=== PATIENT | male | born 1940 | race Caucasian/White ===

== ENCOUNTER 2016-10-12 21:02 | Inpatient (IN) | payer MEDICARE ==
[~2016-10-12] VITALS: Ht 170.2 cm; Wt 72.2 kg
[2016-10-12 22:25] VITALS: BP 124/69; PULSE 67; RESP 16; O2SAT 95
--- NOTE | 2016-10-12 22:25 | NUR ---
NEW ADMIT Pt arrived via air transport @2224. Pt A&Ox3, able to BECERRA and make needs known. Pt independent with transfer to bed. Pt c/o abdominal pain 02/07, requested Diladid once gave orders. Pt arrived [facility] with a 20 gauge to the left AC, all belongings other than glasses are with his , who will be here in the morning. Pt states that he wears a CPAP at night and that his will bring it tomorrow. Pt put on continuous pulse oximeter due to Hx of NATI. Pt vitals stable. All admission questions asked by Kimberly Samano RN. Pt resting in room 2030, resting in bed with call light in reach.
[2016-10-12] MEDS ORDERED: ALPR0.25 PO (23:07)
[2016-10-12] MEDS ORDERED: Alum-Mag Hydrox-Simeth 30 mL Suspension PO PRN (23:45)
[2016-10-12] MEDS ORDERED: Polyethylene Glycol (PEG) 17 Gm Powder PO PRN (23:45)
[2016-10-12] MEDS ORDERED: Ondansetron 2 mg/mL 2 mL Inj IVPUSH PRN (23:45)
[2016-10-13] VITALS (11 sets, daily range): BP systolic 106–135; BP diastolic 60–69; PULSE 59–70; RESP 12–16; O2SAT 92–97
[2016-10-13] MEDS: 0.9% Sodium Chloride 1,000 ML IV SCH ×6 (00:07→23:43)
[2016-10-13] MEDS: HYDROmorphone 0.5 mg/0.5 mL iSecure Syringe IVPUSH PRN ×3 (00:08→08:34)
[2016-10-13] MEDS: Heparin 5,000 Unit/mL Inj SUBQ SCH ×3 (00:22→18:41)
--- NOTE | 2016-10-13 01:44 | PCM.HPMED ---
Subjective Date of Service Oct 12, 2016 Primary Provider: Admitting Physician: Patrick Roger MD Primary Care Physician: Virginie Buchanan MD Attending Physician: Patrick Roger MD Chief Complaint: abd pain History of Present Illness: 76 yo M with h/o GERD who presents as airlift transfer from [facility] for acute cholecystitis with pancreatitis secondary to common bile duct stone obstruction. Patient reports that he has been having some dull achy epigastric pain since the new year, but this pain resolved with just taking Tums. It wasn' t until earlier today that his pain worsened and did not resolved with Tums. He reports he has been at home all day and his pain became increasingly worse until he rated it as 10/10. He reports this pain does radiate to his back and he had some moderate nausea but no vomiting or diarrhea. He denies any fevers or rashes but reports feeling chills. Denies any sick contacts, recent travels, or other constitutional symptoms. He reports a history of acid reflux symptoms, but has never had pain this severe. At [facility], his workup was pertinent for: CBC - WBC - 14.6, HGB 16.1, Hct- 45.9, MCV 85.8, Plts 224, Neutrophils 85.6% CMP- Na-141, K- 3.6, Cl-97, Bun - 14, Cr 0.9, Glucose 116, Ionized Ca - 1.28, Alb- 4.5, Tbili- 2.0, AlkPhos-58, ALT-30, AST-45, Lipase- [id number] UA - only positive for trace blood, 1+ ketones, CT Abd/Pelvis w/ Contrast revealed - 2 tandem distal CBD stones each measuring 4mm, resulting in CBD dilation, cystic duct dilation, distended GB with pericholecystic fluid and peripancreatic inflammation and fluid primarily around head of pancreas. No necrosis or pseudocyst noted. There were also non- obstructing gallstones present and b/l fat containing inguinal hernias. He did receive Dilaudid for pain control and IV Zosyn at 6 hour. He was then transferred to [facility] for further treatment. At present, he only complains of 5/10 epigastric pain without nausea. Review of Systems: 12 Point ROS negative except as stated in HPI Allergies Coded Allergies: Dbcubum-Sdc-Axq Reductase Inhibitor (Verified Allergy, Intermediate, Extrapyramidal Symptoms, 10/12/16) weakness Sulfa (Sulfonamide Antibiotics) (Verified Allergy, Intermediate, Hives, 09/16) niacin (Verified Allergy, Intermediate, Hives, 10/12/16) Uncoded Allergies: bee stings (Allergy, Intermediate, Rash, 10/12/16) Home Medications Multivitamins daily Tums prn Xanax prn insomnia PMH Right Labyrinthitis with hearing loss GERD H/o Prostatitis H/o "1 kidney spills sugar" H/o Hemorrhoids Reports NATI on CPAP Surgical History Tonsillectomy Family History Noncontributory Social History Hx Alcohol Use: Yes (2 glasses of wine with dinner) Hx Substance Use: Yes (remote past) Hx Tobacco Use: Yes Smoking Status: Former Smoker (Remote history of smoking) Living Arrangement: with Family Exam Vital Signs Vital Sign - Last Date Time Temp Pulse Resp B/P Pulse Ox O2 Delivery O2 Flow Rate FiO2 10/12/16 22:25 36.7 67 16 124/69 95 Room Air Exam Gen: Well developed male in NAD HEENT: PERRLA, Sclera Anicteric, Oropharynx non-erythematous, mucosa moist and pink Neck: Soft, nontender CV: RRR with no m/r/c noted Resp: CTAB, no w/r/c, normal effort Abd: Moderately tender to palpation of epigastric region, Neg Adams's sign, Normoactive BS, Non-distended, Soft MSK: MS grossly intact and equal Neuro: Alert and Oriented x3, No focal neuro deficits Skin; Warm, dry, intact, no rashes noted Psych: Appropriate mood and affect Assessment & Plan 76 yo M with h/o GERD who presents as airlift transfer from [facility] for evaluation of acute cholecystitis with pancreatitis secondary to common bile duct stone obstruction. Patient is currently clinically stable and pain is well managed with IV Dilaudid. All labs and imaging is currently in patient's chart. #Acute Cholecystitis and Pancreatitis secondary to CBD stone obstruction -As demonstrated on CT imaging from [facility]. -GI, Dr. Hrat, is aware and will evaluate patient in AM. -Will place patient on NPO status and aggressively hydrate with IV NS 250mls/hr -Continue IV Zosyn for cholecystitis and elevated WBC. -IV Dilaudid prn pain, Anti-emetics and Anti-nausea as needed. H/o NATI on CPAP, POA -Patient reports that his will bring in their CPAP machine. H/O GERD -IV Pantoprazole BID Restoril prn insomnia Ativan prn anxiety Pain Evaluation: Adequate Pain Control VTE Prophylaxis: Sub-Q Heparin (Unfractionated) Resuscitation Status: CPR: Attempt Resuscitation Attending Statement The patient was seen on 10/12/2016 and I agree with the history, exam and plan as outlined in the note above. Rocael Martin DO Oct 12, 2016 23:13 Patrick Roger MD Oct 13, 2016 06:20
--- NOTE | 2016-10-13 01:58 | NUR ---
IV FLUIDS/PAIN MEDS Pt received 1 mg diladid for 6/10 abdominal pain with good results. Pt was started on IV fluids. IV patent and NS running @ 250ml/hr. Pt resting comfortably with ear plugs in. Pt is NPO, but does have ice chips at the bedside, which was approved by . No other issues noted at this time. Addendum: 10/13/16 at 0505 by EMILY JOLLY RN IV FLUIDS/PAIN MEDS/ Pt still has 250ml/hr NS running, wants to load pt up with fluids and has a GI consult scheduled in the AM. Pt received another 1mg IV Diladid for 7/10 abdominal pain. Patient resting comfortably after reassessment, no other issues at this time. Pt able to use urinal at bedside, 200cc voided, UA sent to lab.
[2016-10-13 04:05] LABS: APPEARANCE,URINE CLEAR (CLEAR,HAZY); COLOR,URINE YELLOW (YELLOW); OCCULT BLOOD,URINE NEGATIVE (NEGATIVE); PH,URINE 5.5 (5.0-8.0); UROBILINOGEN,URINE NORMAL (NORMAL)
[2016-10-13 05:56] LABS: BASOPHILS % (AUTO) 0.1 % (0-3); EOSINOPHILS % (AUTO) 0.4 % (0-5); MONOCYTES % (AUTO) 5.4 % (4-12); Mean Corpuscular Hemoglobin 29.4 pg (27.0-35.0); Mean Corpuscular Volume 85.1 fL (81-100); NEUTROPHILS % (AUTO) 85.6 % (40-74); Platelet Count 189 bil/L (150-400)
[2016-10-13 06:38] LABS: INR 1.05 ratio
[2016-10-13] MEDS: Pantoprazole 4 mg/mL 10 mL Inj IVPUSH SCH ×2 (08:29→18:41)
[2016-10-13] MEDS: Piperacillin-Tazo 3.375 Gm Inj 3.375 GM in Dextrose 5% Minibag Plus 50 ML IV SCH ×2 (08:41→21:02)
[2016-10-13] MEDS ORDERED: fentaNYL-PF 50 mCg/mL 2 mL Inj ONE (10:28)
--- NOTE | 2016-10-13 10:38 | NUR ---
ERC Biliary Duct Alert and oriented X3. able to make needs known. stable vital signs. Abdominal pain 5/10 reported by patient with effective results 2/10. per patient mild nausea with PRN pain medication but tolerable. patient has been NPO after mid night. Received all scheduled IV medications as ordered. independent with transfers with assistance. doctors orders to remove telemetry. Endoscopy called for procedure at 1500 XR ERC Biliary duct. patient aware. continue to monitor for pain. NS running at 250 mls/hour as ordered.
--- NOTE | 2016-10-13 11:27 | PCM.CHPMED ---
Subjective Date of Service: Oct 13, 2016 Provider requesting consult: Rocael Martin DO Primary Physician: Admitting Physician: Patrick Roger MD Primary Care Physician: Virginie Buchanan MD Attending Physician: Patrick Roger MD Chief Complaint: Chief Complaint: Abdominal pain History of Present Illness: Patient is a 76 yo M with history of GERD who presents with dull achy epigastric pain,and nausea. He reports he has had this pain since the new year, but it initially resolved with just taking Tums. It wasn't until the day of admission that his pain worsened. He reports he has been at work when his pain became increasingly worse until he rated it as 10/10. His pain radiated to his back and he had some moderate nausea but no vomiting or diarrhea. He denies any fevers or rashes but reports feeling chills. He reports a history of acid reflux symptoms, but has never had pain this severe. This morning, however, he states his abdominal pain is much improved on Dilaudid, and reports only minor pain at this time with mild nausea. He has no other complaints at this time. At [facility], he was noted to have WBC 14.6, T bili 2, alk phos 59, ALT 30, AST 45, and lipase [id number]. CT abdomen/pelvis with contrast showed 2 tandem distal CBD stones each measuring 4mm, resulting in CBD dilation, cystic duct dilation, distended GB with pericholecystic fluid and peripancreatic inflammation and fluid primarily around head of pancreas. No necrosis or pseudocyst noted. There were also non-obstructing gallstones present and b/l fat containing inguinal hernias. He was admitted as an airlift transfer from [facility] for acute cholecystitis with pancreatitis secondary to common bile duct stone obstruction. His last colonoscopy was 1 year ago, showing 1 colon polyp. He is due for a follow up 5 years following. He has no family history of colon cancer, Crohn's, UC, or Celiac disease. He denies alcohol abuse or NSAID use. Review of Systems: Comprehensive review of systems conducted and was negative except for the pertinent positives listed above. PMH Past Medical History Right Labyrinthitis with hearing loss GERD H/o Prostatitis H/o "1 kidney spills sugar" H/o Hemorrhoids Reports NATI on CPAP Surgical History Tonsillectomy Allergies: Coded Allergies: Eavbwhm-Icd-Nvm Reductase Inhibitor (Verified Allergy, Intermediate, Extrapyramidal Symptoms, 10/12/16) weakness Sulfa (Sulfonamide Antibiotics) (Verified Allergy, Intermediate, Hives, 09/16) niacin (Verified Allergy, Intermediate, Hives, 10/12/16) Uncoded Allergies: bee stings (Allergy, Intermediate, Rash, 10/12/16) Family History Family History Noncontributory Social History Hx Alcohol Use: Yes (2 glasses of wine with dinner)Hx Substance Use: Yes ( remote past)Hx Tobacco Use: Yes Smoking Status: Former Smoker (Remote history of smoking) Living Arrangement: with Family Exam Vital Signs Vital Sign - Last Date Time Temp Pulse Resp B/P Pulse Ox O2 Delivery O2 Flow Rate FiO2 10/13/16 08:00 70 10/13/16 07:53 36.6 14 110/69 95 Room Air Intake and Output 10/12/16 10/12/16 10/13/16 Cumulative From/Thru 15:00 23:00 07:00 10/12/16 22:25 - 10/13/16 06:05 Intake Total 0 ml 0 ml Output Total 200 ml 200 ml Balance -200 ml -200 ml Intake Oral 0 ml 0 ml Output Urine Total 200 ml 200 ml # Voids 1 1 Additional Information: General: Alert, Oriented X3, Cooperative, No Acute Distress Head: Normocephalic, atraumatic. External ears normal. Eyes: PERRLA, EOMI. Anicteric sclerae. Mouth: Mouth Normal, Mucous Membranes Moist/[place] Neck: Neck supple with full range of motion. Chest & Lungs: Clear to auscultation bilaterally with no crackles, wheezes, or rhonchi. Cardiovascular: Regular Rate/Rhythm, Normal S1, Normal S2, No Murmurs/Rubs/ Gallops Abdomen: Mild epigastric tenderness. Minimal RUQ tenderness, negative Adams sign, Non-distended, No masses, Normoactive bowel tones, Soft Musculoskeletal: Normal Range of Motion Extremities: No cyanosis/clubbing/edema bilaterally Neurological: Grossly Neurologically Intact, Normal Speech Lab and Diagnostics Result Diagram: 10/13/1640 10/13/16 0540 Assessment & Plan Assessment Patient 76 yo M with h/o GERD who presents as airlift transfer from [facility] for evaluation of acute cholecystitis with pancreatitis secondary to common bile duct stone obstruction. Patient is currently clinically stable and pain is well managed with IV Dilaudid. Pancreatitis secondary to CBD stone obstruction - CT abdomen/pelvis with contrast showed 2 tandem distal CBD stones each measuring 4mm, resulting in CBD dilation, cystic duct dilation, distended GB with pericholecystic fluid and peripancreatic inflammation and fluid primarily around head of pancreas. Pt reporting abdominal pain well-controlled with Dilaudid. Lipase now 3116, down from >10k. - NPO - NS 250mls/hr - Dilaudid IV prn pain - Zofran 4-7 mg IV q4h PRN - Will proceed with ERCP Acute Cholecystitis - Secondary to cholelithiasis and choledocholithiasis. CT abd/pelvis showed distended GB with pericholecystic fluid indicative of cholecystitis. - Recommend Surgery consult History of GERD - IV Pantoprazole 40 mg BID Problems: Pain Evaluation: Adequate Pain Control VTE Prophylaxis: Sub-Q Heparin (Unfractionated) Resuscitation Status: CPR: Attempt Resuscitation Attending Statement Pt seen and examined with resident physician I agree with H and P and plan as outlined above. Plan for ERCP Javy Mitchell Oct 13, 2016 11:27 Kian Webb MD Oct 13, 2016 23:32
[2016-10-13] MEDS ORDERED: Rocuronium 10 mg/mL 5 mL Inj ONE (12:19)
[2016-10-13] MEDS ORDERED: Propofol 10,000 mCg/mL 20 mL Inj ONE (12:19)
[2016-10-13] MEDS ORDERED: Succinylcholine Chloride 20 mg/mL 5 mL Inj ONE (12:19)
[2016-10-13] MEDS ORDERED: Ondansetron 2 mg/mL 2 mL Inj ONE (12:19)
[2016-10-13] MEDS ORDERED: Lactated Ringer's 1,000 ML IV ONE (13:45)
--- NOTE | 2016-10-13 14:06 | NUR ---
To Endo lab Patient is off to Endo lab for XR ERC biliary duct procedure.
--- NOTE | 2016-10-13 14:07 | NUR ---
patient has been NPO. Addendum: 10/13/16 at 1408 by SUPRIYA AMIN RN Amended: Links added.
--- NOTE | 2016-10-13 14:57 | NUR ---
Social Work: Initial Assessment Attempt Data & Assessment: Stereo Plotter Operator attempted to meet with the patient and complete Initial Assessment, but was notified by patient's nurse that the patient was at the Endo lab completing a ERC. SW will attempt to complete assessment tomorrow. SW will continue to follow. Plan: SW will attempt to complete initial assessment tomorrow.
[2016-10-13] MEDS ORDERED: MetoCLOpramide 5 mg/mL 2 mL Inj IVPUSH PRN (15:05)
[2016-10-13] MEDS ORDERED: Dexamethasone 4 mg/mL Inj IVPUSH PRN (15:05)
[2016-10-13] MEDS ORDERED: Lactated Ringer's 1,000 ML IV SCH (15:05)
[2016-10-13] MEDS ORDERED: HYDROmorphone 1 mg/mL Inj IVPUSH PRN (15:05)
[2016-10-13] MEDS ORDERED: Lactated Ringer's 500 ML IV PRN (15:05)
[2016-10-13] MEDS ORDERED: Ondansetron 2 mg/mL 2 mL Inj IVPUSH PRN (15:05)
[2016-10-13] MEDS ORDERED: EPHEDrine Sulfate 50 mg/mL Inj IVPUSH PRN (15:05)
[2016-10-13] MEDS ORDERED: Phenylephrine 10,000 mCg/mL Inj IVPUSH PRN (15:05)
[2016-10-13] MEDS ORDERED: fentaNYL-PF 50 mCg/mL 2 mL Inj IVPUSH PRN (15:05)
--- NOTE | 2016-10-13 15:05 | PCM.HPANE ---
Patient Data Surgeon Admitting Provider:Patrick Roger MD Attending Provider:Patrick Roger MD Primary Care Physician:Virginie Buchanan MD Other Provider: Reason for Visit Cholecystitis With Pancreatitis Ht/WT & BMI Height (Feet): 5 Height (Inches): 7.00 Weight (Kilograms): 65.300 Body Mass Index 22.60 Allergies Coded Allergies: Rkkoiuq-Qnn-Apx Reductase Inhibitor (Verified Allergy, Intermediate, Extrapyramidal Symptoms, 10/12/16) weakness Sulfa (Sulfonamide Antibiotics) (Verified Allergy, Intermediate, Hives, 09/16) niacin (Verified Allergy, Intermediate, Hives, 10/12/16) Uncoded Allergies: bee stings (Allergy, Intermediate, Rash, 10/12/16) Past Anesthesia History Anesthesia History: Denies:: Anesthesia Reactions Diabetes History Hx Diabetes?: No (kidney spills sugar) MRSA MRSA: No Medications Reported Medications Alprazolam (Xanax)0.25 Mg Tablet PO PRN PRN For Anxiety Ref 0 10/12/16 History History of ENT Problems?: Yes HEENT History: Denies:: Cataracts Dysphagia Glaucoma Sinus Problem Other HEENT Pertinent History: dry R eye Hx of Heart Problems?: No Hx of Respiratory Problem?: Yes Respiratory History: Denies:: Asthma COPD Chest Surgery Dyspnea Emphysema Hemoptysis Pneumonia Tuberculosis Other Resp Pertinent History: sleep apnea Hx Neurologic Problems?: Yes Neurological History: Positive for:: Dizziness (labrynthitis) Denies:: Alzheimer's Disease CVA Dementia Headaches Parkinson's Disease Seizures Hx of GI Problems?: Yes Gastrointestinal History: Positive for:: Gastroesphageal Reflux Heartburn Rectal Bleeding (with hemorrhoid) Denies:: Diverticulitis Gastrointestinal Bleeding Hepatitis Hiatal Hernia Hx of Problems?: Yes Genitourinary History: Denies:: HX of Hemodialysis Kidney Stones Urinary Tract Infection HX of Peritoneal Dialysis: No Other Pertinent History: one kidny spills sugar hx. of prostate infections Hx Musculoskeletal Problems?: Yes Musculoskeletal History: Positive for:: Back Injury (back pain) Denies:: Joint Replacement Musculoskeletal Trauma Hx of Psycho/Social Problems?: No Hx Surgeries?: Yes (tonsils as a child) Hx Any Other Health Problems?: Yes Other History: Positive for:: Hospitalization (remote) Denies:: Cancer Thyroid Disease History Blood Transfusions: Positive for:: Accept Blood Products? Denies:: Blood Transfusions Hx Diabetes: No (kidney spills sugar) Hx Alcohol Use: Yes (2 glasses of wine with dinner)Hx Substance Use: Yes ( remote past) Smoking Status: Former Smoker (Remote history of smoking) Have You Smoked inLast 12 mo: No Stop/Bang Treated for Sleep Apnea?: Yes Do You Have a CPAP Machine?: Yes S-Snoring: Do You Snore Loudly: Yes Risk Assessment Category Category 1A: Patient has history of documented sleep apnea, and HAS NOT received any narcotic, sedative or anesthesia administration during this stay. Category 1B: Patient has history of documented sleep apnea, and HAS received any narcotic , sedative or anesthesia administration during this stay Category 2: Patient has SUSPECTED Obstructive Sleep Apnea, and HAS received any narcotic , sedative or anesthesia administration during this stay. Category 3: Patient has SUSPECTED Obstructive Sleep Apnea and HAS NOT received narcotic, sedative or anesthesia administration during this stay. Category 4: Outpatient in Procedural Areas with known sleep apnea or who screen positive for High Risk via the STOP/BANG questionnaire. Exam Exam Vital Signs Vital Signs Date Time Temp Pulse Resp B/P Pulse Ox O2 Delivery O2 Flow Rate FiO2 10/13/16 08:00 70 10/13/16 07:53 36.6 68 14 110/69 95 Room Air General Appearance: Alert, Oriented X3, Cooperative, No Acute Distress HEENT/AIRWAY: MP 3, Mouth Opening (small) Lungs: Clear to Auscultation Heart: Exam Unremarkable Meds/Labs/Diagnostics Admission Meds Current Medications Heparin Sodium (Porcine) 5000 unit 5,000 unit Q8 SUBQ Last administered on 10/13 08:42; Start 10/13/16 at 00:30 Sodium Chloride (Normal Saline) 1,000 ml @ 250 mls/hr Q4H IV Last administered on 10/13/16 11:24; Start 10/12/16 at 23:43 Pantoprazole 40 mg 40 mg BIDAC IVPUSH Last administered on 10/13/16 08:29; Start 10/13/16 at 07:30 Piperacillin Sod/ Tazobactam Sod/ Dextrose/Water (Zosyn 3.375 Gm Inj/D5W Minibag Plus) 50 ml @ 12.5 mls/hr Q12 IV Last administered on 1/13/17at 08:41 ; Start 10/13/16 at 08:30 Labs Test 10/13/16 03:20 10/13/16 05:40 Urine Color Yellow (YELLOW) Urine Appearance Clear (CLEAR,HAZY) Urine pH 5.5 (5.0-8.0) Urine Specific [place] 1.015 (1.003-1.035) Urine Protein Negativemg/dL (NEG,TRACE) Urine Glucose (UA) Negativemg/dL (NEGATIVE) Urine Ketones 15mg/dL (NEGATIVE) Urine Occult Blood Negative (NEGATIVE) Urine Nitrite Negative (NEGATIVE) Urine Bilirubin Negative (NEGATIVE) Urine Urobilinogen Normalmg/dL (NORMAL) Urine Leukocyte Esterase Negative (NEGATIVE) Urine RBC 0-2/hpf (0-2) Urine WBC 0-5/hpf (0-5) Urine Epithelial Cells Occasional/hpf (NONE-MOD) Urine Crystals None seen (NONE SEEN) Urine Bacteria None/hpf (NONE-FEW) Urine Hyaline Casts None/lpf (NONE) Urine Granular Casts None seen (NONE SEEN) Urine Waxy Casts None seen (NONE SEEN) Urine Red Blood Cell Casts None seen (NONE SEEN) Urine White Blood Cell Casts None seen (NONE SEEN) Urine Mucus None seen (None Seen) Urine Trichomonas None seen (NONE SEEN) Urine Yeast None (NONE SEEN) Urine Culture Reflexed Not indicated White Blood Count 9.0th/mm3 (3.8-10.1) Red Blood Count 4.70mil/mm3 (4.40-5.80) Hemoglobin 13.8g/dL (13.8-17.2) Hematocrit 40.0% (41.0-50.0) Mean Corpuscular Volume 85.1fL (81-100) Mean Corpuscular Hemoglobin 29.4pg (27.0-35.0) Mean Corpuscular Hemoglobin Concent 34.5% (32.0-37.0) Red Cell Distribution Width 13.2% (12.3-15.4) Platelet Count 189bil/L (150-400) Neutrophils (%) (Auto) 85.6% (40-74) Lymphocytes (%) (Auto) 8.4% (14-46) Monocytes (%) (Auto) 5.4% (4-12) Eosinophils (%) (Auto) 0.4% (0-5) Basophils (%) (Auto) 0.1% (0-3) Prothrombin Time 11.2sec (8.1-12.5) Prothromb Time International Ratio 1.05ratio Sodium Level 140mEq/L (134-144) Potassium Level 4.1mEq/L (3.5-5.2) Chloride Level 103mEq/L (97-108) Carbon Dioxide Level 26mmol/L (18-29) Blood Urea Nitrogen 13mg/dL (8-27) Creatinine 0.76mg/dL (0.76-1.27) Estimat Glomerular Filtration Rate 106mL/min (>59) Glucose Level 135mg/dL (60-99) Calcium Level 8.3mg/dL (8.5-10.1) Total Bilirubin 1.5mg/dL (0.0-1.2) Aspartate Amino Transf (AST/SGOT) 23U/L (0-50) Alanine Aminotransferase (ALT/SGPT) 20U/L (0-44) Alkaline Phosphatase 49U/L (25-160) Total Protein 5.6g/dL (6.4-8.4) Albumin 3.4g/dL (3.4-5.0) Amylase Level 2386U/L (28-100) Lipase 3116U/L (13-60) Plan Impression Patient chart reviewed, patient interviewed and anesthestic plan with risks, benefits, and alternatives discussed, and informed consent obtained. ASA Physical Status: ASA2 Mod Systemic Disease Anesthetic Plan: GA Bene/Risks/Altern/Consents: Yes HP Complete Prior to Induction: Yes Luis Wyatt MD Oct 13, 2016 13:21
--- NOTE | 2016-10-13 17:45 | PCM.PNMED ---
Subjective Date of Service Oct 13, 2016 Subjective Patient is a 76 yo M with medical history of GERD. Admitted for treatment of acute cholecystitis with pancreatitis secondary to common bile duct stone obstruction. Hospital Day 1 Today Patient stated that he was experiencing mild abdominal distension and pain in abdomen with radiation to back, but has vastly improved since admission and well controlled with pain medication. Patient stated that he has nausea associated with pain medication. He stated he has not had a bowel movement since admission. Patient denies vomiting, bruising of abdomen, fever, chills, loss of bowel or bladder control. ROS negative except as mentioned above. Exam Vital Signs Vital Sign - Last Date Time Temp Pulse Resp B/P Pulse Ox O2 Delivery O2 Flow Rate FiO2 10/13/16 05:06 68 10/13/16 04:25 36.7 16 106/61 92 Room Air Intake and Output 10/12/16 10/12/16 10/13/16 Cumulative From/Thru 15:00 23:00 07:00 10/12/16 22:25 - 10/13/16 06:05 Intake Total 0 ml 0 ml Output Total 200 ml 200 ml Balance -200 ml -200 ml Intake Oral 0 ml 0 ml Output Urine Total 200 ml 200 ml # Voids 1 1 Exam General: Alert, Oriented X3, Cooperative, No Acute Distress Head: Normocephalic, atraumatic. External ears normal. Eyes: PERRLA, EOMI. Anicteric sclerae. Mouth: Mouth Normal, Mucous Membranes Moist/[place] Neck: Neck supple with full range of motion. Chest & Lungs: Clear to auscultation bilaterally with no crackles, wheezes, or rhonchi. Cardiovascular: Regular Rate/Rhythm, Normal S1, Normal S2, No Murmurs/Rubs/ Gallops Abdomen: Mildly tender RUQ and Epigastric area, distended, No masses, Normoactive bowel tones, Negative hodges turners sign, Negative Enrique's sign Musculoskeletal: Normal Range of Motion Extremities: No cyanosis/clubbing/edema bilaterally, no tenderness to palpation of calves b/l Neurological: Grossly Neurologically Intact, , Normal Speech, Strength Normal 4 /4 ext, Normal Gait, Sensation Intact, Cerebellar Function nl Finger-Nose, Lab and Diagnostics Copied from H&P "At [facility], his workup was pertinent for: CBC - WBC - 14.6, HGB 16.1, Hct- 45.9, MCV 85.8, Plts 224, Neutrophils 85.6% CMP- Na-141, K- 3.6, Cl-97, Bun - 14, Cr 0.9, Glucose 116, Ionized Ca - 1.28, Alb- 4.5, Tbili- 2.0, AlkPhos-58, ALT-30, AST-45, Lipase- 25050 UA - only positive for trace blood, 1+ ketones," Laboratory Tests Test 10/13/16 03:20 10/13/16 05:40 Urine Color Yellow (YELLOW) Urine Appearance Clear (CLEAR,HAZY) Urine pH 5.5 (5.0-8.0) Urine Specific [place] 1.015 (1.003-1.035) Urine Protein Negativemg/dL (NEG,TRACE) Urine Glucose (UA) Negativemg/dL (NEGATIVE) Urine Ketones 15mg/dL (NEGATIVE) Urine Occult Blood Negative (NEGATIVE) Urine Nitrite Negative (NEGATIVE) Urine Bilirubin Negative (NEGATIVE) Urine Urobilinogen Normalmg/dL (NORMAL) Urine Leukocyte Esterase Negative (NEGATIVE) Urine RBC 0-2/hpf (0-2) Urine WBC 0-5/hpf (0-5) Urine Epithelial Cells Occasional/hpf (NONE-MOD) Urine Crystals None seen (NONE SEEN) Urine Bacteria None/hpf (NONE-FEW) Urine Hyaline Casts None/lpf (NONE) Urine Granular Casts None seen (NONE SEEN) Urine Waxy Casts None seen (NONE SEEN) Urine Red Blood Cell Casts None seen (NONE SEEN) Urine White Blood Cell Casts None seen (NONE SEEN) Urine Mucus None seen (None Seen) Urine Trichomonas None seen (NONE SEEN) Urine Yeast None (NONE SEEN) Urine Culture Reflexed Not indicated White Blood Count 9.0th/mm3 (3.8-10.1) Red Blood Count 4.70mil/mm3 (4.40-5.80) Hemoglobin 13.8g/dL (13.8-17.2) Hematocrit 40.0% (41.0-50.0) Mean Corpuscular Volume 85.1fL (81-100) Mean Corpuscular Hemoglobin 29.4pg (27.0-35.0) Mean Corpuscular Hemoglobin Concent 34.5% (32.0-37.0) Red Cell Distribution Width 13.2% (12.3-15.4) Platelet Count 189bil/L (150-400) Neutrophils (%) (Auto) 85.6% (40-74) Lymphocytes (%) (Auto) 8.4% (14-46) Monocytes (%) (Auto) 5.4% (4-12) Eosinophils (%) (Auto) 0.4% (0-5) Basophils (%) (Auto) 0.1% (0-3) Prothrombin Time 11.2sec (8.1-12.5) Prothromb Time International Ratio 1.05ratio Sodium Level 140mEq/L (134-144) Potassium Level 4.1mEq/L (3.5-5.2) Chloride Level 103mEq/L (97-108) Carbon Dioxide Level 26mmol/L (18-29) Blood Urea Nitrogen 13mg/dL (8-27) Creatinine 0.76mg/dL (0.76-1.27) Estimat Glomerular Filtration Rate 106mL/min (>59) Glucose Level 135mg/dL (60-99) Calcium Level 8.3mg/dL (8.5-10.1) Total Bilirubin 1.5mg/dL (0.0-1.2) Aspartate Amino Transf (AST/SGOT) 23U/L (0-50) Alanine Aminotransferase (ALT/SGPT) 20U/L (0-44) Alkaline Phosphatase 49U/L (25-160) Total Protein 5.6g/dL (6.4-8.4) Albumin 3.4g/dL (3.4-5.0) Amylase Level 2386U/L (28-100) Lipase 3116U/L (13-60) Result Diagram: 10/13/16 0540 10/13/16 0540 X-Rays, CTs and MRIs CT Abd/Pelvis w/ Contrast Copied form H&P "2 tandem distal CBD stones each measuring 4mm, resulting in CBD dilation, cystic duct dilation, distended GB with pericholecystic fluid and peripancreatic inflammation and fluid primarily around head of pancreas. No necrosis or pseudocyst noted. There were also non-obstructing gallstones present and b/l fat containing inguinal hernias." Assessment & Plan 76 yo M with h/o GERD admitted for evaluation and treatment of acute cholecystitis with pancreatitis secondary to common bile duct stone obstruction. Hospital Day 1 1. Acute Cholecystitis and Pancreatitis secondary to CBD stone obstruction [place] [facility] [place]GI, Dr. Hart, is aware and will evaluate patient in AM. -Will place patient on NPO status and aggressively hydrate with IV NS 250mls/hr -Continue IV Zosyn for cholecystitis and elevated WBC. -IV Dilaudid prn pain, Anti-emetics and Anti-nausea as needed. - GI recommend proceed with ERCP today, results pending 2. Chronic NATI on CPAP, POA -Patient reports that his will bring in their CPAP machine. 3. Chronic GERD -IV Pantoprazole BID Restoril prn insomnia Ativan prn anxiety Patient is admitted under inpatient status with expected length of stay greater than 2 midnights due to severity of presenting symptoms, risk of adverse event, and complexity of treatment plan. VTE Prophylaxis: Sub-Q Heparin (Unfractionated) Resuscitation Status: CPR: Attempt Resuscitation Attending Statement The patient was seen and examined together with Dr. Arriola on 10/13/2016 and I agree with the history, exam and plan as outlined in the note above. . GREGG ARRIOLA DO Oct 13, 2016 06:59 Piter Mcfadden MD Oct 14, 2016 07:50
--- NOTE | 2016-10-13 17:57 | PCM.ANEP1 ---
Post Anesthesia Phase 1 PACU Phase 1 Assessment Date of Service: Oct 13, 2016 Vital Signs Vital Signs Date Time Temp Pulse Resp B/P Pulse Ox O2 Delivery O2 Flow Rate FiO2 10/13/16 14:17 36.7 61 112/69 94 Room Air Anesthetic Administered: GA Level of Alertness: Awake, talking BECERRA's with Equal Strength: Yes Pain: Yes Pain Scale Score: 5 Nausea or Vomiting: No Oxygen Delivery: Room Air Lungs: Clear to Auscultation Dermatome Level: Full Sensation Luis Wyatt MD Oct 13, 2016 17:57
--- NOTE | 2016-10-13 17:57 | PCM.ANEP2 ---
Post Anesthesia Evaluation ASA/CMS Post Anesthesia VS in Patient's Normal Range?: Yes Resp Stable; Airway Patent?: Yes CV Function & Hydration Stable: Yes Mental Status Recovered?: Yes Pain control Satisfactory?: Yes N/V Control Satisfactory?: Yes Luis Wyatt MD Oct 13, 2016 17:57
--- NOTE | 2016-10-13 18:52 | DRSVH ---
PROCEDURE: X-RAY E.R.C. BILIARY DUCTS ([id number]) INDICATIONS: CBD STONE TECHNIQUE: Fluoroscopic spot films were acquired by the gastroenterology service during ERCP procedu re. COMPARISON: None. FINDINGS: 2 intraprocedural images show partial visualization of the common duct, and no definite co mmon duct stone at termination of study. IMPRESSION: No common duct stone found at termination of study, image 2 of 2. Dictated by: Kirk De La Cruz M.D. on 10/13/2016 at 18:50 Approved by: Kirk De La Cruz M.D. on 10/13/2016 at 18:50
--- NOTE | 2016-10-13 19:09 | CONS ---
[address] [address] CONSULTATION REPORT PATIENT: KELLEY ACEVEDO : 1940 MR#: [id number] ADMIT: 10/12/2016 JOB ID: [id number] DATE OF SERVICE: 10/13/2016 CHIEF COMPLAINT: This is a 76-year-old man with gallstone pancreatitis; my opinion is requested by Dr. Kian Webb. HISTORY OF PRESENT ILLNESS: This is a 76-year-old man who was admitted to this hospital early today as an airlift transfer from [facility]. He presented with dull epigastric pain since October 01, but it had been resolving with Tums. Then, earlier yesterday, his pain worse to a 10/10. It was radiating to his back and he had some moderate nausea, but no vomiting or diarrhea. He also had chills, and no fevers. He also has a history of reflux. Labs upon arrival revealed a bilirubin of 1.5, amylase of 2386, and lipase of 3116. He underwent ERCP by Dr. Webb, who asked me to see the patient regarding potential for cholecystectomy. PAST MEDICAL HISTORY: GERD, prostatitis, hemorrhoids, right labyrinthitis with hearing loss, sleep apnea with CPAP, BMI 22. PAST SURGICAL HISTORY: Tonsillectomy. MEDICATIONS: Multivitamins, Tums, Xanax for insomnia. ALLERGIES: STATINS, SULFA, NIACIN. FAMILY HISTORY: There is no family history of gallbladder disease. His mother lived into her 90s. His father many years ago; he is not sure why, but noted that his father drink a lot of alcohol. SOCIAL HISTORY: He drinks two glasses of wine with dinner. He has a history of smoking marijuana use in his 20s, but none recently. 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 He lives in [place]. PHYSICAL EXAMINATION: Temperature 36.7, heart rate 61, blood pressure 112/69, saturation 94% on room air. General: Awake, but somewhat sedated after ERCP. No acute distress. Fluent, intact speech. Head: Normocephalic. Neck: Supple. Cardiac: Regular rate and rhythm, no murmurs, rubs, or gallops. Respiratory: Clear to auscultation bilaterally. Abdomen: Very mildly distended, not tympanic no rebound or guarding. His abdomen is actually nontender to palpation. Extremities: No edema. Neurologic: No gross deficits. Psychiatric: Normal cognition and judgment. Skin: No outstanding lesions. LABS: White blood cell count is 9, hematocrit 40, with platelets 199. Comprehensive metabolic panel is within normal limits with the exception of bilirubin of 1.5, amylase 2386, lipase 3116. AST, ALT, and alkaline phosphatase are normal. IMAGING: His only imaging performed thus far is ERCP. There are two saved images which revealed opacification of the bile duct with termination of the flow of contrast distally. ERCP with stone extraction was performed earlier in the day; a final dictation is pending on this. ASSESSMENT: A 76-year-old man with gallstone pancreatitis status post endoscopic retrograde cholangiopancreatogram. RECOMMENDATIONS: I recommend laparoscopic cholecystectomy to be performed once his pancreatitis shows signs of improvement. An abdominal ultrasound may be performed in the interim for assessment of the gallbladder, which will help to identify signs of concurrent cholecystitis and presence of stones. My usual operative day is Wednesdays and, if he is still in the hospital, potentially it could be performed on this coming Sunday, October 18. However, if he is approaching discharge sooner than that, it is possible that it could be performed sooner than that day; or it could be performed after the on an outpatient basis at his convenience, although I do not recommend waiting longer than 6-12 weeks after this episode. This was all discussed with him in today. He understands and agrees. LINDY
--- NOTE | 2016-10-13 19:14 | NUR ---
Back from procedure patient back from procedure approx 1800. Report received by nurse after the procedure. patient is alert and oriented X3. able to make needs known. stable vital signs. post op report given to night nurse and aware. denies pain or discomfort and states," actually mu pain is gone."
[2016-10-14 00:36] VITALS: BP 110/65; PULSE 68; O2SAT 95
[2016-10-14] MEDS: 0.9% Sodium Chloride 1,000 ML IV SCH ×5 (00:39→16:23)
[2016-10-14] MEDS: Heparin 5,000 Unit/mL Inj SUBQ SCH ×3 (00:39→16:24)
--- NOTE | 2016-10-14 04:49 | NUR ---
Pain Pt has not complained of any pain since return from procedure. Tolerated clear liquids without nausea or pain, advance diet to general in am. Ambulating with steady gait, IV fluids infusing, CPAP at home settings. Hourly rounding ongoing.
--- NOTE | 2016-10-14 05:19 | ENDO ---
[address] [address] ENDOSCOPY PROCEDURE PATIENT: KELLEY ACEVEDO : 1940 MR#: [id number] ADMIT: 10/12/2016 JOB ID: [id number] DATE OF SERVICE: PROCEDURE: Endoscopic retrograde cholangiopancreatography. INDICATION: Choledocholithiasis/gallstone pancreatitis. ASA CLASSIFICATION, MALLAMPATI SCORE AND MEDICATIONS: Please see anesthesia report for details regarding ASA classification, Mallampati score, and details regarding general anesthesia. INSTRUMENT USED: [id number]. PROCEDURE DETAILS: After informed consent was obtained, the patient was brought into the GI suite, where he was placed under general anesthesia. He was then placed in the standard ERCP position, and a bite block was placed. The side-viewing duodenoscope was advanced through the bite block without difficulty. The ampulla was identified. Initial professional services consultant film under fluoroscopy was unremarkable. Using an Olympus CleverCut tome, we initially cannulated the pancreatic duct. No dye was injected. The catheter was then withdrawn and redirected and then, we were successful in gaining access into the common bile duct. Initial cholangiogram revealed an approximately 9 mm common bile duct. There was an approximately 8 mm filling defect in the distal CBD. There was no filling of the cystic duct or gallbladder. The intrahepatics appeared unremarkable. We attempted to perform a sphincterotomy. However, the Olympus CleverCut tome did not appear to be functioning properly at this point as the thermal effect was inadequate despite ERCP settings on ERBE unit. The Olympus CleverCut tome was removed, and the [employer] Autotome was then inserted. Using this, we extended the sphincterotomy. Following this, using an Olympus inject from below balloon, several balloon sweeps were performed which extruded sludge and fragmented stone particles. Final cholangiogram revealed no further filling defects in the common bile duct. There was rapid flow of contrast and bile noted from the ampulla. IMPRESSION: Endoscopic retrograde cholangiopancreatography, status post sphincterotomy with balloon sweep and extraction of stone and sludge. IMMEDIATE COMPLICATIONS: None. ESTIMATED BLOOD LOSS: Less than 5 mL. MTDD
[2016-10-14 05:33] LABS: BASOPHILS % (AUTO) 0.2 % (0-3); EOSINOPHILS % (AUTO) 3.4 % (0-5); MONOCYTES % (AUTO) 6.1 % (4-12); Mean Corpuscular Hemoglobin 29.3 pg (27.0-35.0); Mean Corpuscular Volume 86.5 fL (81-100); NEUTROPHILS % (AUTO) 70.5 % (40-74); Platelet Count 162 bil/L (150-400)
[2016-10-14 07:30] VITALS: BP 102/52; PULSE 74; RESP 22; O2SAT 92
[2016-10-14] MEDS: Pantoprazole 4 mg/mL 10 mL Inj IVPUSH SCH ×2 (07:41→16:24)
[2016-10-14] MEDS: Piperacillin-Tazo 3.375 Gm Inj 3.375 GM in Dextrose 5% Minibag Plus 50 ML IV SCH ×2 (07:41→20:18)
--- NOTE | 2016-10-14 08:39 | PCM.PNSURG ---
Subjective Visit Information: Reason for Visit Cholecystitis With Pancreatitis Surgery/Surgery Date Post-Op Day # Date of Admission: Oct 12, 2016 at 22:36 Hospital Day # Subjective: had ERCP yesterday, has mild discomfort this am but improved compared to 2 days ago Objective Objective Awake in bed Abd: soft, no noticeable tenderness on palpation today Lipase 243 today Vital Sign- Last 8 Hours Date Time Temp Pulse Resp B/P Pulse Ox O2 Delivery O2 Flow Rate FiO2 10/14/16 07:30 36.8 74 22 102/52 92 Room Air 10/14/16 00:36 36.9 68 110/65 95 Room Air Intake and Output- Last 8 Hour 10/14/16 Cumulative From/Thru 07:00 10/12/16 22:25 - 10/14/16 06:40 Intake Total 2388 ml 4196 ml Output Total 200 ml Balance 2388 ml 3996 ml Intake Oral 800 ml 800 ml IV Total 1588 ml 3396 ml Output Urine Total 200 ml # Voids 2 5 # Bowel Movements 0 1 Result Diagram: 10/14/16 0503 10/14/16 0503 Assessment & Plan Impression Choledocholithiasis s/p ERCP Had CT scan at [facility] --> cholelithiasis Pancreatitis, improving Problems: Plan Clear liquid diet Allow for resolution of pancreatitis Consider lap leon on Sun or VTE Prophylaxis: Sub-Q Heparin (Unfractionated) Resuscitation Status: CPR: Attempt Resuscitation Isreal Patel MD Oct 14, 2016 08:39
[2016-10-14] MEDS: oxyCODONE-Acetamin 5-325 mg Tablet PO PRN ×2 (10:34→20:14)
[2016-10-14 12:22] LABS: Bilirubin, Direct 0.2 mg/dL (0.0-0.3)
--- NOTE | 2016-10-14 12:40 | DRSVH ---
PROCEDURE: US ABDOMEN ([id number]) INDICATIONS: cholecystitis TECHNIQUE: Real-time scanning was performed of the abdominal and retroperitoneal organs, with image documentatio n. COMPARISON: [facility], CR, XR ERC BILIARY DUCTS, 10/13/2016, 17:53. FINDINGS: Liver: Liver is normal in size with coarse sonographic echotexture. No discrete focal hepatic lesio ns identified. Gallbladder: The gallbladder is distended with mild gallbladder wall thickening measuring 3-4 mm. No pericholecystic fluid or reported sonographic Adams's sign. There are echogenic gallstones in the gallbladder neck. In addition, there is a small 6 mm round non-mobile non-shadowing focus within the gallbladder likely representing a polyp. Within the fundus, there is an indistinct isoechoic region which may represent adherent sludge. This measures up to approximately 11 mm without internal vascu larity on color Doppler interrogation. Biliary ducts: Intrahepatic bile ducts are non-dilated. Extrahepatic bile duct caliber measures 5 m m. Normal is 6-7 mm or less in diameter, or 10 mm or less post-cholecystectomy. Pancreas: Visualized portions of the pancreas are sonographically normal. Spleen: Spleen is normal in size and homogeneous in echotexture. Kidneys: Right kidney measures 9.2 cm long; left kidney measures 10.6 cm long. No hydronephrosis. There are 2 simple cysts in the left kidney with the largest measuring up to 8.6 cm. Aorta: Visualized aorta is normal in caliber at less than 3 cm. Iliacs: Proximal common iliac arteries are normal in caliber at less than 2.5 cm. IVC: Intrahepatic inferior vena cava is patent. Miscellaneous: No free abdominal fluid. IMPRESSION: 1. Distended gallbladder with mild wall thickening and likely impacted gallstones in the gallbladder neck. No pericholecystic fluid or reported sonographic Adams's sign. Findings are suspicious for d eveloping cholecystitis. 2. Small 6 mm gallbladder polyp. 3. Isoechoic irregular nonmobile filling defect in the fundus may represent adherent sludge but a ma ss may this appearance. Recommend followup ultrasound to demonstrate stability if patient does not h ave a cholecystectomy. Dictated by: Sonido Gonsalez M.D. on 10/14/2016 at 12:35 Approved by: Sonido Gonsalez M.D. on 10/14/2016 at 12:35
[2016-10-14 13:51] VITALS: BP 111/67; PULSE 65; RESP 19; O2SAT 93
--- NOTE | 2016-10-14 15:01 | PCM.PNMED ---
Subjective Date of Service Oct 14, 2016 Subjective no abdominal pain, nausea or vomiting No hematemesis , melena or hematochezia Exam Vital Signs Vital Sign - Last Date Time Temp Pulse Resp B/P Pulse Ox O2 Delivery O2 Flow Rate FiO2 10/14/16 13:51 37.0 65 19 111/67 93 Room Air 10/13/16 17:50 2 Intake and Output 10/13/16 10/13/16 10/14/16 Cumulative From/Thru 15:00 23:00 07:00 10/12/16 22:25 - 10/14/16 06:40 Intake Total 858 ml 950 ml 2388 ml 4196 ml Output Total 200 ml Balance 858 ml 950 ml 2388 ml 3996 ml Intake Oral 0 ml 800 ml 800 ml IV Total 858 ml 950 ml 1588 ml 3396 ml Output Urine Total 200 ml # Voids 2 2 5 # Bowel Movements 1 0 1 Exam GEN- no apparent distress, oriented and appropriate HEENT-o/p clear , no icterus RESP- clear bilaterally CVS-RRR abdomen- soft, nontender, non distended, bowel sounds appreciated EXT- no edema Lab and Diagnostics Result Diagram: 10/14/16 0503 10/14/16 0503 X-Rays, CTs and MRIs CT Abd/Pelvis w/ Contrast Copied form H&P "2 tandem distal CBD stones each measuring 4mm, resulting in CBD dilation, cystic duct dilation, distended GB with pericholecystic fluid and peripancreatic inflammation and fluid primarily around head of pancreas. No necrosis or pseudocyst noted. There were also non-obstructing gallstones present and b/l fat containing inguinal hernias. Assessment & Plan Gallstone pancreatitis -s/p ERCP with sphincterotomyand stone extraction -LFT's normal today -pancreatitis improved -consider advancing diet Acute Cholecystitis --improved -on IV antibiotics --cholecystectomy as per surgery Chronic GERD -cont PPI daily -out patient EGD to rule out Bowser's -discussed with him and his in detail Will sign off please call if assistance needed. VTE Prophylaxis: Sub-Q Heparin (Unfractionated) Resuscitation Status: CPR: Attempt Resuscitation Kian Webb MD Oct 14, 2016 15:01
--- NOTE | 2016-10-14 17:56 | PCM.PNMED ---
Subjective Date of Service Oct 14, 2016 Subjective Patient is a 76 yo M with medical history of GERD. Admitted for treatment of acute cholecystitis with pancreatitis secondary to common bile duct stone obstruction. Hospital Day 2 Today Patient stated he has mild epigastric pain after the ERCP yesterday, his throat is sore, and he hands are looking puffy and swollen. Patient denies fever , chill, nausea, vomiting, diarrhea,loss of appetite. ROS negative except as mentioned above. Exam Vital Signs Vital Sign - Last Date Time Temp Pulse Resp B/P Pulse Ox O2 Delivery O2 Flow Rate FiO2 10/14/16 00:36 36.9 68 110/65 95 Room Air 10/13/16 20:58 16 10/13/16 17:50 2 Intake and Output 10/13/16 10/13/16 10/14/16 Cumulative From/Thru 15:00 23:00 07:00 10/12/16 22:25 - 10/14/16 06:40 Intake Total 858 ml 950 ml 2388 ml 4196 ml Output Total 200 ml Balance 858 ml 950 ml 2388 ml 3996 ml Intake Oral 0 ml 800 ml 800 ml IV Total 858 ml 950 ml 1588 ml 3396 ml Output Urine Total 200 ml # Voids 2 2 5 # Bowel Movements 1 0 1 Exam General: Alert, Oriented X3, Cooperative, No Acute Distress Head: Normocephalic, atraumatic. External ears normal. Eyes: PERRLA, EOMI. Anicteric sclerae. Mouth: Mouth Normal, Mucous Membranes Moist/[place] Neck: Neck supple with full range of motion. Chest & Lungs: Coarse breath sounds on auscultation bilaterally with no crackles , wheezes, or rhonchi. Cardiovascular: Regular Rate/Rhythm, Normal S1, Normal S2, No Murmurs/Rubs/ Gallops Abdomen: Mildly tender Epigastric area improved from yesterday, non-distended, No masses, Normoactive bowel tones, Negative hodges turners sign, Negative Enriuqe' s sign Musculoskeletal: Normal Range of Motion Extremities: No cyanosis/clubbing/edema bilaterally, no tenderness to palpation of calves b/l Neurological: Grossly Neurologically Intact, Normal Speech, Strength Normal 4/ 4 ext, Normal Gait, Sensation Intact, IVs and Medications Medications Reviewed: Medications were reviewed in detail Lab and Diagnostics Laboratory Tests Test 1/14/17 05:03 White Blood Count 9.1th/mm3 (3.8-10.1) Red Blood Count 4.43mil/mm3 (4.40-5.80) Hemoglobin 13.0g/dL (13.8-17.2) Hematocrit 38.3% (41.0-50.0) Mean Corpuscular Volume 86.5fL (81-100) Mean Corpuscular Hemoglobin 29.3pg (27.0-35.0) Mean Corpuscular Hemoglobin Concent 33.9% (32.0-37.0) Red Cell Distribution Width 13.4% (12.3-15.4) Platelet Count 162bil/L (150-400) Neutrophils (%) (Auto) 70.5% (40-74) Lymphocytes (%) (Auto) 19.7% (14-46) Monocytes (%) (Auto) 6.1% (4-12) Eosinophils (%) (Auto) 3.4% (0-5) Basophils (%) (Auto) 0.2% (0-3) Sodium Level 140mEq/L (134-144) Potassium Level 3.9mEq/L (3.5-5.2) Chloride Level 105mEq/L (97-108) Carbon Dioxide Level 26mmol/L (18-29) Blood Urea Nitrogen 12mg/dL (8-27) Creatinine 0.82mg/dL (0.76-1.27) Estimat Glomerular Filtration Rate 97mL/min (>59) Glucose Level 85mg/dL (60-99) Lactic Acid Level 0.9mmol/L (0.4-2.0) Calcium Level 7.5mg/dL (8.5-10.1) Total Bilirubin 1.2mg/dL (0.0-1.2) Direct Bilirubin 0.2mg/dL (0.0-0.3) Aspartate Amino Transf (AST/SGOT) 20U/L (0-50) Alanine Aminotransferase (ALT/SGPT) 14U/L (0-44) Alkaline Phosphatase 41U/L (25-160) Total Protein 5.0g/dL (6.4-8.4) Albumin 3.1g/dL (3.4-5.0) Lipase 243U/L (13-60) Procalcitonin < 0.05ng/mL (See Comment) Result Diagram: 10/14/16 0503 10/14/16 0503 X-Rays, CTs and MRIs CT Abd/Pelvis w/ Contrast Copied form H&P "2 tandem distal CBD stones each measuring 4mm, resulting in CBD dilation, cystic duct dilation, distended GB with pericholecystic fluid and peripancreatic inflammation and fluid primarily around head of pancreas. No necrosis or pseudocyst noted. There were also non-obstructing gallstones present and b/l fat containing inguinal hernias. Assessment & Plan 76 yo M with h/o GERD admitted for evaluation and treatment of acute cholecystitis with pancreatitis secondary to common bile duct stone obstruction. Hospital Day 2 1. Acute Cholecystitis and Pancreatitis secondary to CBD stone obstruction -[place] [facility] [place] patient on regular diet, min carb 45 g advance as tolerated - DC IV fluids, encourage PO intake as tolerated -Continue IV Zosyn for cholecystitis and elevated WBC. -IV Dilaudid prn pain, Anti-emetics and Anti-nausea as needed. - GI recommend proceed with ERCP today, one stone in common bile duct removed, thickening of gallbladder noted - Surgery following patient recommend cholecystectomy once pancreatitis resolved ,wait no longer than 6-12 weeks after this episode 2. Chronic NATI on CPAP, POA -Patient reports that his will bring in their CPAP machine. 3. Chronic GERD -IV Pantoprazole BID Restoril prn insomnia Ativan prn anxiety Patient is admitted under inpatient status with expected length of stay greater than 2 midnights due to severity of presenting symptoms, risk of adverse event, and complexity of treatment plan. VTE Prophylaxis: Sub-Q Heparin (Unfractionated) Resuscitation Status: CPR: Attempt Resuscitation Attending Statement The patient was seen and examined together with Dr. Arriola on 10/14/2016 and I agree with the history, exam and plan as outlined in the note above. . GREGG ARRIOLA DO Oct 14, 2016 06:54 Piter Mcfadden MD Oct 15, 2016 07:52
--- NOTE | 2016-10-14 18:12 | NUR ---
Diet/ambulation The pt experienced no epigastric pain today. His diet has been advanced to general, as he tolerated clear/full liquids well this morning and afternoon. The pt was able to ambulate in the halls with no issues, and is a hopeful DC home tomorrow with a follow up judy.
[2016-10-14 20:04] VITALS: BP 125/64; PULSE 68; RESP 20; O2SAT 92
[2016-10-15 00:26] VITALS: BP 100/55; PULSE 65; RESP 20; O2SAT 92
[2016-10-15] MEDS: Heparin 5,000 Unit/mL Inj SUBQ SCH ×2 (00:28→07:42)
--- NOTE | 2016-10-15 03:54 | NUR ---
Pain/Diet/Activity Pt c/o mild headache 10/10 that he reports as "persistent, I have had it the whole time I have been here." Administered 1 Tab Percocet x1 this shift and effective, no further complaints. Pt reported tolerating his dinner this evening and was grateful to be eating solid food, no c/o nausea or abdominal discomfort. Pt up and ambulating in hallway with and tolerating well. VSS and pt is no longer on Tele. Pt to DC this morning.
[2016-10-15 04:09] VITALS: BP 94/53; PULSE 66; RESP 18; O2SAT 90
[2016-10-15 05:57] LABS: BASOPHILS % (AUTO) 0.2 % (0-3); EOSINOPHILS % (AUTO) 5.4 % (0-5); MONOCYTES % (AUTO) 6.8 % (4-12); Mean Corpuscular Hemoglobin 29.4 pg (27.0-35.0); Mean Corpuscular Volume 87.6 fL (81-100); NEUTROPHILS % (AUTO) 60.9 % (40-74); Platelet Count 152 bil/L (150-400)
[2016-10-15] MEDS: Piperacillin-Tazo 3.375 Gm Inj 3.375 GM in Dextrose 5% Minibag Plus 50 ML IV SCH (07:41)
[2016-10-15] MEDS: Pantoprazole 4 mg/mL 10 mL Inj IVPUSH SCH (07:41)
[2016-10-15 07:50] VITALS: BP 102/56; PULSE 68; RESP 20; O2SAT 92
--- NOTE | 2016-10-15 08:04 | PCM.PNSURG ---
Subjective Visit Information: Reason for Visit Cholecystitis With Pancreatitis Surgery/Surgery Date Post-Op Day # Date of Admission: Oct 12, 2016 at 22:36 Hospital Day # Subjective: continuing to improve, had solid food last night, no abd pain this am, wants to go home and come back for surgery Objective Objective Awake in bed in room Abd: nondistended, soft Lipase 65 Vital Sign- Last 8 Hours Date Time Temp Pulse Resp B/P Pulse Ox O2 Delivery O2 Flow Rate FiO2 10/15/16 07:50 36.4 68 20 102/56 92 Room Air 10/15/16 04:09 36.6 66 18 94/53 90 Room Air 10/15/16 00:26 36.8 65 20 100/55 92 Room Air Intake and Output- Last 8 Hour 10/15/16 Cumulative From/Thru 07:00 10/12/16 22:25 - 10/15/16 06:47 Intake Total 400 ml 7863 ml Output Total 600 ml 800 ml Balance -200 ml 7063 ml Intake Oral 400 ml 2100 ml IV Total 5763 ml Output Urine Total 600 ml 800 ml # Voids 2 9 # Bowel Movements 1 Result Diagram: 10/15/16 0526 10/15/16 0526 Assessment & Plan Impression Gallstone pancreatitis, improved Choledocholithiasis s/p ERCP extraction Problems: Plan OK to discharge home with po abx Will arrange surgery with Dr. Hays for this coming week or the next. VTE Prophylaxis: Sub-Q Heparin (Unfractionated) Resuscitation Status: CPR: Attempt Resuscitation Isreal Patel MD Oct 15, 2016 08:04
[2016-10-15] MEDS ORDERED: CEFU500T61 PO (12:35)
--- NOTE | 2016-10-15 12:35 | NUR ---
KRISTINA: signed by patient
--- NOTE | 2016-10-15 12:37 | PCM.DIMED ---
Yanet Cheney DO 10/15/16 1237: Discharge Instructions Date of Service Oct 15, 2016 Dates of Hospitalization Oct 12, 2016 at 22:36 Discharge Diagnosis Discharge Diagnosis 1. Acute Cholecystitis and Pancreatitis secondary to CBD stone obstruction 2. 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 Chronic GERD Medication Instructions Please take 3 more days of antibiotics. Finish all the pills. Diet Other (Low fat) Activity Limited until seen by PCP Call your provider Fever or Chills Patient Instructions Please follow up with Dr. Webb regarding your EGD. Please follow with Dr. Hays regarding your gall bladder surgery. It is scheduled for Sunday. Please follow up with your PCP in 2-3 weeks Piter Mcfadden MD 10/15/16 1515: Discharge Instructions Attending's Statement The patient was seen and examined together with Dr. Cheney on 10/15/2016 and I agree with the history, exam and plan as outlined in the note above. . Yanet Cheney DO Oct 15, 2016 12:37 Piter Mcfadden MD Oct 15, 2016 15:15
--- NOTE | 2016-10-15 13:02 | NUR ---
Discharge The pt discharged from the unit at 1300 with all his belongings and his packet of discharge paperwork, including new scripts and educational material. The pt verbalized understanding of all discharge teaching presented. The pt left the unit on foot with his , and is being transported home via private car and ferry. The pt left A&O x3, with all vitals WNL
--- NOTE | 2016-10-16 16:33 | PCM.DC.MED ---
Discharge Summary Date of Service Oct 16, 2016 Dates of Hospitalization Date of Hospital Admission Oct 12, 2016 at 22:36 Date of Discharge: Oct 15, 2016 Providers: Admitting Physician: Patrick Roger MD Primary Care Physician: Virginie Buchanan MD Attending Physician: Patrick Roger MD Diagnosis at Time of Discharge Diagnosis at Time of Discharge 1. Acute Cholecystitis and Pancreatitis secondary to CBD stone obstruction 2. 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 Chronic GERD Consultations Gastroenterology Surgery Procedures XRay, CTs & MRIs US ABDOMEN IMPRESSION: 1. Distended gallbladder with mild wall thickening and likely impacted gallstones in the gallbladder neck. No pericholecystic fluid or reported sonographic Adams's sign. Findings are suspicious for developing cholecystitis. 2. Small 6 mm gallbladder polyp. 3. Isoechoic irregular nonmobile filling defect in the fundus may represent adherent sludge but a mass may this appearance. Recommend followup ultrasound to demonstrate stability if patient does not have a cholecystectomy. Dictated by: Sonido Gonsalez M.D. on 10/14/2016 at 12:35 X-RAY E.R.C. BILIARY DUCTS IMPRESSION: No common duct stone found at termination of study, image 2 of 2. Dictated by: Kirk De La Cruz M.D. on 10/13/2016 at 18:[address] Martin's H and P: "76 yo M with h/o GERD who presents as airlift transfer from [facility] for acute cholecystitis with pancreatitis secondary to common bile duct stone obstruction. Patient reports that he has been having some dull achy epigastric pain since the new year, but this pain resolved with just taking Tums. It wasn' t until earlier today that his pain worsened and did not resolved with Tums. He reports he has been at home all day and his pain became increasingly worse until he rated it as 10/10. He reports this pain does radiate to his back and he had some moderate nausea but no vomiting or diarrhea. He denies any fevers or rashes but reports feeling chills. Denies any sick contacts, recent travels, or other constitutional symptoms. He reports a history of acid reflux symptoms, but has never had pain this severe. At [facility], his workup was pertinent for: CBC - WBC - 14.6, HGB 16.1, Hct- 45.9, MCV 85.8, Plts 224, Neutrophils 85.6% CMP- Na-141, K- 3.6, Cl-97, Bun - 14, Cr 0.9, Glucose 116, Ionized Ca - 1.28, Alb- 4.5, Tbili- 2.0, AlkPhos-58, ALT-30, AST-45, Lipase- 00164 UA - only positive for trace blood, 1+ ketones, CT Abd/Pelvis w/ Contrast revealed - 2 tandem distal CBD stones each measuring 4mm, resulting in CBD dilation, cystic duct dilation, distended GB with pericholecystic fluid and peripancreatic inflammation and fluid primarily around head of pancreas. No necrosis or pseudocyst noted. There were also non- obstructing gallstones present and b/l fat containing inguinal hernias. He did receive Dilaudid for pain control and IV Zosyn at 6 hour. He was then transferred to [facility] for further treatment. At present, he only complains of 5/10 epigastric pain without nausea." Hospital Course 76 yo M with h/o GERD admitted for evaluation and treatment of acute cholecystitis with pancreatitis secondary to common bile duct stone obstruction. Hospital Day 2 1. Acute Cholecystitis and Pancreatitis secondary to CBD stone obstruction -As demonstrated on CT imaging from [facility] [place]. -Advanced to regular diet, min carb 45 g advance as tolerated -Given IV fluids, encouraged PO intake as tolerated -Continued IV Zosyn for cholecystitis and elevated WBC. -IV Dilaudid PRN pain, anti-emetics and anti-nausea as needed. -GI recommend proceed with ERCP, one stone in common bile duct removed, thickening of gallbladder noted -Surgery recommended cholecystectomy once pancreatitis resolved.Surgery scheduled for 10/18/[address] Hays 2. 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 3. Chronic GERD -IV Pantoprazole BID Restoril PRN insomnia Ativan PRN anxiety Exam Vital Signs (Last) Date Time Temp Pulse Resp B/P Pulse Ox O2 Delivery O2 Flow Rate FiO2 10/15/16 07:50 36.4 68 20 102/56 92 Room Air 10/13/16 17:50 2 Exam General: Alert, Oriented X3, Cooperative, No Acute Distress Head: Normocephalic, atraumatic. External ears normal. Eyes: PERRLA, EOMI. Anicteric sclerae. Mouth: Mouth Normal, Mucous Membranes Moist/[place] Neck: Neck supple with full range of motion. Chest & Lungs: Coarse breath sounds on auscultation bilaterally with no crackles , wheezes, or rhonchi. Cardiovascular: Regular Rate/Rhythm, Normal S1, Normal S2, No Murmurs/Rubs/ Gallops Abdomen: no tender Epigastric area improved from yesterday, non-distended, No masses, Normoactive bowel tones, Negative hodges turners sign, Negative Enrique's sign Musculoskeletal: Normal Range of Motion Extremities: No cyanosis/clubbing/edema bilaterally, no tenderness to palpation of calves b/l Neurological: Grossly Neurologically Intact, Normal Speech, Strength Normal 4/ 4 ext, Normal Gait, Sensation Intact, Test 10/13/16 03:20 10/13/16 05:40 10/14/16 05:03 10/15/16 05:26 Urine Color Yellow (YELLOW) Urine Appearance Clear (CLEAR,HAZY) Urine pH 5.5 (5.0-8.0) Urine Specific [place] 1.015 (1.003-1.035) Urine Protein Negativemg/dL (NEG,TRACE) Urine Glucose (UA) Negativemg/dL (NEGATIVE) Urine Ketones 15mg/dL (NEGATIVE) Urine Occult Blood Negative (NEGATIVE) Urine Nitrite Negative (NEGATIVE) Urine Bilirubin Negative (NEGATIVE) Urine Urobilinogen Normalmg/dL (NORMAL) Urine Leukocyte Esterase Negative (NEGATIVE) Urine RBC 0-2/hpf (0-2) Urine WBC 0-5/hpf (0-5) Urine Epithelial Cells Occasional/hpf (NONE-MOD) Urine Crystals None seen (NONE SEEN) Urine Bacteria None/hpf (NONE-FEW) Urine Hyaline Casts None/lpf (NONE) Urine Granular Casts None seen (NONE SEEN) Urine Waxy Casts None seen (NONE SEEN) Urine Red Blood Cell Casts None seen (NONE SEEN) Urine White Blood Cell Casts None seen (NONE SEEN) Urine Mucus None seen (None Seen) Urine Trichomonas None seen (NONE SEEN) Urine Yeast None (NONE SEEN) Urine Culture Reflexed Not indicated Prothrombin Time 11.2sec (8.1-12.5) Prothromb Time International Ratio 1.05ratio Amylase Level 2386U/L (28-100) Lactic Acid Level 0.9mmol/L (0.4-2.0) Direct Bilirubin 0.2mg/dL (0.0-0.3) Procalcitonin < 0.05ng/mL (See Comment) White Blood Count 6.5th/mm3 (3.8-10.1) Red Blood Count 4.29mil/mm3 (4.40-5.80) Hemoglobin 12.6g/dL (13.8-17.2) Hematocrit 37.6% (41.0-50.0) Mean Corpuscular Volume 87.6fL (81-100) Mean Corpuscular Hemoglobin 29.4pg (27.0-35.0) Mean Corpuscular Hemoglobin Concent 33.5% (32.0-37.0) Red Cell Distribution Width 13.4% (12.3-15.4) Platelet Count 152bil/L (150-400) Neutrophils (%) (Auto) 60.9% (40-74) Lymphocytes (%) (Auto) 26.5% (14-46) Monocytes (%) (Auto) 6.8% (4-12) Eosinophils (%) (Auto) 5.4% (0-5) Basophils (%) (Auto) 0.2% (0-3) Sodium Level 141mEq/L (134-144) Potassium Level 3.7mEq/L (3.5-5.2) Chloride Level 108mEq/L (97-108) Carbon Dioxide Level 25mmol/L (18-29) Blood Urea Nitrogen 9mg/dL (8-27) Creatinine 0.75mg/dL (0.76-1.27) Estimat Glomerular Filtration Rate 108mL/min (>59) Glucose Level 95mg/dL (60-99) Calcium Level 7.3mg/dL (8.5-10.1) Total Bilirubin 0.7mg/dL (0.0-1.2) Aspartate Amino Transf (AST/SGOT) 15U/L (0-50) Alanine Aminotransferase (ALT/SGPT) 11U/L (0-44) Alkaline Phosphatase 38U/L (25-160) Total Protein 4.6g/dL (6.4-8.4) Albumin 2.9g/dL (3.4-5.0) Lipase 65U/L (13-60) Discharge Medications Discharge Medications Cefuroxime Axetil (Cefuroxime) 500 Mg Tablet 500 MG PO BID Prescribed by: ROSSY POSEY DO As needed Alprazolam (Xanax) 0.25 Mg Tablet 0 PO PRN PRN PRN For Anxiety (Reported) Additional med instructions Please take 3 more days of antibiotics. Finish all the pills. Followup Plan Discharge Diet: Other (Low fat) Discharge Activity: Limited until seen by PCP Patient Instructions Please follow up with Dr. Webb regarding your EGD. Please follow with Dr. Hays regarding your gall bladder surgery. It is scheduled for Sunday. Please follow up with your PCP in 2-3 weeks Time spent Greater than 30 minutes was spent in preparation of discharge with greater than 50% of that time dedicated to patient counseling and coordination of care. . Attending Statement The patient was seen and examined together with Dr. Posey on 10/15/2016 and I agree with the history, exam and plan as outlined in the note above. . copies to: Virginie Buchanan MD, Viktoriya DO Oct 16, 2016 16:33 Piter Mcfadden MD Oct 17, 2016 13:49
== END 2016-10-15 12:53 | disposition home or self-care (01) | DRG 444 ==
LOC: PCC 22:36
PROVIDERS: ADMIT Internal Medicine; ATTEND Internal Medicine
PROC: BF141ZZ Fluoroscopy of Gallbladder, Bile Ducts and Pancreatic Ducts using Low Osmolar Contrast (ICD-10-PCS; principal; 2016-10-13 15:00)
PROC: 0FC98ZZ Extirpation of Matter from Common Bile Duct, Via Natural or Artificial Opening Endoscopic (ICD-10-PCS; 2016-10-13 15:00)
DX: K80.43 Calculus of bile duct with acute cholecystitis with obstruction (principal); K85.10 Biliary acute pancreatitis without necrosis or infection; G47.33 Obstructive sleep apnea (adult) (pediatric); K21.9 Gastro-esophageal reflux disease without esophagitis; F41.9 Anxiety disorder, unspecified; G47.00 Insomnia, unspecified

== ENCOUNTER 2016-10-18 11:06 | Day surgery (SDC) | payer MEDICARE ==
[~2016-10-18] VITALS: Ht 167.6 cm; Wt 70.9 kg
[2016-10-18] VITALS (12 sets, daily range): BP systolic 119–143; BP diastolic 56–74; PULSE 61–101; RESP 15–22; O2SAT 94–97
[~2016-10-18 11:06] MED LIST: ALPR0.25 PO; CEFU500T61 PO
[2016-10-18] MEDS ORDERED: Neostigmine 1 mg/mL 5 mL Inj ONE (11:07)
[2016-10-18] MEDS ORDERED: EPHEDrine/NS 5 mg/mL 5 mL Syringe ONE (11:07)
[2016-10-18] MEDS ORDERED: Phenylephrine/NS 100 mCg/mL 10 mL Syringe IVPUSH ONE (11:07)
[2016-10-18] MEDS ORDERED: Glycopyrrolate 0.2 mg/mL 5 mL Inj ONE (11:07)
[2016-10-18] MEDS ORDERED: Dexamethasone 4 mg/mL Inj ONE (11:07)
[2016-10-18] MEDS ORDERED: fentaNYL-PF 50 mCg/mL 2 mL Inj ONE (11:07)
[2016-10-18] MEDS ORDERED: MetoCLOpramide 5 mg/mL 2 mL Inj ONE (11:07)
[2016-10-18] MEDS ORDERED: Rocuronium 10 mg/mL 5 mL Inj ONE (11:07)
[2016-10-18] MEDS ORDERED: Propofol 10,000 mCg/mL 20 mL Inj ONE (11:07)
[2016-10-18] MEDS ORDERED: hydrALAZINE 20 mg/mL Inj ONE (11:07)
[2016-10-18] MEDS ORDERED: Ondansetron 2 mg/mL 2 mL Inj ONE (11:07)
[2016-10-18] MEDS ORDERED: Lactated Ringer's 1,000 ML IV ONE (11:52)
[2016-10-18] MEDS ORDERED: FAMO20T PO (12:33)
[2016-10-18] MEDS ORDERED: FISH OIL PO (12:34)
[2016-10-18] MEDS ORDERED: GINGER PO (12:36)
[2016-10-18] MEDS ORDERED: Lactated Ringer's 500 ML IV PRN (15:18)
[2016-10-18] MEDS ORDERED: Lactated Ringer's 1,000 ML IV SCH (15:18)
--- NOTE | 2016-10-18 15:18 | PCM.HPANE ---
Patient Data Surgeon Admitting Provider: Attending Provider:Nia Hays MD Primary Care Physician:Virginie Buchanan MD Other Provider:Marichuy Slateringham Anesthesia Reason for Visit Biliary Acute Pancreatitis Ht/WT & BMI Height (Feet): 5 Height (Inches): 6 Weight (Kilograms): 70.90 Body Mass Index 25.00 Allergies Coded Allergies: [id number] Reductase Inhibitor (Verified Allergy, Intermediate, Extrapyramidal Symptoms, 10/12/16) weakness Sulfa (Sulfonamide Antibiotics) (Verified Allergy, Intermediate, Hives, 09/16) niacin (Verified Allergy, Intermediate, Hives, 10/12/16) Uncoded Allergies: bee stings (Allergy, Intermediate, Rash, 10/12/16) Past Anesthesia History Anesthesia History: Denies:: Abnormal Airway, Anesthesia Reactions, Difficult Intubation, Fam Anesthesia Reaction, Fam Malignant Hypertherm, Malignant Hyperthermia Diabetes History Hx Diabetes?: No (kidney spills sugar) MRSA MRSA: No Medications Active Scripts Cefuroxime Axetil (Cefuroxime)500 Mg [id number] Mg PO BID #6 TABLET Prov:Yanet Cheney DO 10/15/16 Reported Medications [Izabela] No Conflict Check1 Tab PO DAILY 10/18/16 [Fish Oil] No Conflict Check1 Tab PO DAILY 10/18/16 Famotidine (Pepcid)20 Mg [id number] Mg PO PRN 10/18/16 Alprazolam (Xanax)0.25 Mg Tablet PO PRN PRN For Anxiety Ref 0 10/12/16 History History of ENT Problems?: Yes HEENT History: Denies:: Abnormal Airway Cataracts Difficult Intubation Dysphagia Hearing Problem Sinus Problem Hx of Heart Problems?: No Hx of Respiratory Problem?: Yes Respiratory History: Positive for:: Use of C-PAP Machine Denies:: Asthma COPD Chest Surgery Dyspnea Emphysema Hemoptysis Pneumonia Tuberculosis Hx Neurologic Problems?: Yes Neurological History: Positive for:: Dizziness (labrynthitis) Denies:: Alzheimer's Disease CVA Dementia Headaches Parkinson's Disease Seizures Hx of GI Problems?: Yes Gastrointestinal History: Positive for:: Gall Bladder Disease Gastroesphageal Reflux (LAP MAKENZIE SCHEDULED FOR 10/17/16) Heartburn Rectal Bleeding (with hemorrhoid) Denies:: Cirrhosis Diverticulitis Gastrointestinal Bleeding Hepatitis Hiatal Hernia Hx of Problems?: Yes Genitourinary History: Denies:: HX of Hemodialysis Kidney Stones Urinary Tract Infection HX of Peritoneal Dialysis: No Male Hx: Positive for:: Prostate Problems Skin History: Denies:: History Skin Disorders? Pressure Ulcers Hx Musculoskeletal Problems?: Yes Musculoskeletal History: Positive for:: Back Injury (back pain) Denies:: Joint Replacement Musculoskeletal Trauma Hx of Psycho/Social Problems?: No Psycho Social History: Denies:: Anxiety Hx Depression Hx Surgeries?: Yes (tonsils as a child, ERCP) Hx Any Other Health Problems?: Yes Other History: Positive for:: Hospitalization (remote) Denies:: Cancer Thyroid Disease History Blood Transfusions: Denies:: Blood Transfusions Hx Diabetes: No (kidney spills sugar) Hx Alcohol Use: Yes (2 glasses of wine with dinner)Hx Substance Use: Yes ( remote past) Smoking Status: Former Smoker Have You Smoked inLast 12 mo: No Stop/Bang NATI Category 2: Yes Risk Assessment Category Category 1A: Patient has history of documented sleep apnea, and HAS NOT received any narcotic, sedative or anesthesia administration during this stay. Category 1B: Patient has history of documented sleep apnea, and HAS received any narcotic , sedative or anesthesia administration during this stay Category 2: Patient has SUSPECTED Obstructive Sleep Apnea, and HAS received any narcotic , sedative or anesthesia administration during this stay. Category 3: Patient has SUSPECTED Obstructive Sleep Apnea and HAS NOT received narcotic, sedative or anesthesia administration during this stay. Category 4: Outpatient in Procedural Areas with known sleep apnea or who screen positive for High Risk via the STOP/BANG questionnaire. Exam Exam General Appearance: Alert, Oriented X3, Cooperative, No Acute Distress HEENT/AIRWAY: MP 2 Lungs: Clear to Auscultation Heart: Exam Unremarkable Plan Impression Patient chart reviewed, patient interviewed and anesthestic plan with risks, benefits, and alternatives discussed, and informed consent obtained. ASA Physical Status: ASA2 Mod Systemic Disease Anesthetic Plan: GA Bene/Risks/Altern/Consents: Yes HP Complete Prior to Induction: Yes Luis Wyatt MD Oct 18, 2016 08:41
[2016-10-18] MEDS ORDERED: Dexamethasone 4 mg/mL Inj IVPUSH PRN (15:20)
[2016-10-18] MEDS ORDERED: HYDROmorphone 1 mg/mL Inj IVPUSH PRN (15:20)
[2016-10-18] MEDS ORDERED: fentaNYL-PF 50 mCg/mL 2 mL Inj IVPUSH PRN (15:20)
[2016-10-18] MEDS ORDERED: MetoCLOpramide 5 mg/mL 2 mL Inj IVPUSH PRN ×2 (15:20→18:55)
[2016-10-18] MEDS ORDERED: Bupivacaine-MPF 0.5% W/EPI 30 mL Inj INFILTRATE ONE (15:20)
[2016-10-18] MEDS ORDERED: EPHEDrine Sulfate 50 mg/mL Inj IVPUSH PRN (15:20)
[2016-10-18] MEDS ORDERED: Ondansetron 2 mg/mL 2 mL Inj IVPUSH PRN ×2 (15:20→18:55)
[2016-10-18] MEDS ORDERED: Phenylephrine 10,000 mCg/mL Inj IVPUSH PRN (15:20)
--- NOTE | 2016-10-18 17:54 | DRSVH ---
PROCEDURE: X-RAY OPERATIVE CHOLANGIOGRAM ([id number]) INDICATIONS: GALLSTONE PANCREATITIS COMPARISON: None. FINDINGS: Biliary ducts: The surgeon injected contrast into the biliary ducts after cannulation of the cystic duct stump. Visualized intra- and extrahepatic bile ducts are prominent. Filling defects are identif ied within the proximal common bile duct. Duodenum: Contrast flows promptly through the sphincter of Oddi into the duodenum, which appears nor mal in caliber. IMPRESSION: The defects are identified in the proximal common bile duct. These could be related to in jected air. However, retained stones cannot be definitively excluded and recommend correlation to james l-time operative report. Dictated by: Samantha Ness M.D. on 10/18/2016 at 17:52 Approved by: Samantha Ness M.D. on 10/18/2016 at 17:52
--- NOTE | 2016-10-18 19:26 | PCM.SURGOP ---
Surgical Operative Report Date of Service: Oct 18, 2016 Pre Operative Diagnosis Gallstone pancreatitis Post Operative Diagnosis 1. Gallstone pancreatitis 2. Chronic cholecystitis Procedure: Laparoscopic cholecystectomy with intraoperative cholangiogram with interpretation Surgeon and Tapper Bit: Surgeon: Nia Hays MD Assistants: Dameon Wahl MD; Ayana Mckeon MS3. Dr. Wahl scrubbed in to assist with control of bleeding. Indication for Procedure This is a 76yom who was admitted to the hospital 5 days ago for gallstone pancreatitis. He underwent ERCP with sphincterotomy and stone extraction. His amylase and lipase levels normalized and he was discharged. He also has a several year history of chronic right upper quadrant abdominal pain. He had seen his primary care provider for this, and was treating his pain with aspirin. Abdominal ultrasound showed a distended gallbladder with a thickened wall, gallstones, and a probable gallbladder polyp. Findings: 1. Severe chronic cholecystitis with thick, firm adhesions. 2. The gallbladder had been adhered to the common bile duct due to inflammation. Careful slow dissection to safely get it off of the common bile duct was required. No injury to the common bile duct occurred. 3. Intraoperative cholangiogram was performed. There was a small amount of residual sludge in the common bile duct, which was cleared with flushing. There was easy flow of contrast into the duodenum. Small bubbles were visualized in the cystic duct on the first contrast run, which disappeared on the second and third runs. There was good visualization of the cystic duct, common hepatic duct, common bile duct, right hepatic duct, and left hepatic duct. There were 3 branches extending to the right liver. 4. Bleeding from the bed of the liver which required greater than 30 minutes of tamponade on, Surgicel, and argon beam coagulation to control. 5. 19 Samoan SHASHANK drain placed. Procedure Details The patient was brought to the operating room and placed in supine position. General endotracheal anesthesia was smoothly induced. Antibiotics were infused. A warming blanket and SCDs were placed. A foot board was placed. The operative field was prepped and draped in sterile fashion. A pause was performed to confirm the correct patient, procedure, site, and side. A transverse 10 mm incision was made just below the umbilicus. The abdomen was entered under direct vision using a Merna port. Three additional 5 mm ports were placed in the epigastrium and right upper quadrant. The gallbladder was identified and lifted cephalad. Severe chronic cholecystitis was noted, with significant adhesions overlying the entire gallbladder. The gallbladder was also distended and appeared to have stones impacted in the infundibulum. The duodenum was gently dissected off of the gallbladder. Dissection then proceeded to identify the cystic duct, and to expose the cystic plate. The cystic artery was cemented in adhesive inflammatory tissue and was controlled with tamponade using a Raytec and electrocautery. The gallbladder was adhered to the common bile duct by inflammatory adhesions. Careful slow dissection to safely get it off of the common bile duct was required. No injury to the common bile duct occurred. Once the cystic duct was adequately dissected and was clearly entering the gallbladder, a clip was placed on the gallbladder side of the cystic duct. A ductotomy was made and a cholangiocatheter was inserted. A cholangiogram was performed. There was a small amount of residual sludge in the common bile duct, which was cleared with flushing. There was easy flow of contrast into the duodenum. Small bubbles were visualized in the cystic duct on the first contrast run, which disappeared on the second and third runs. There was good visualization of the cystic duct, common hepatic duct, common bile duct, right hepatic duct, and left hepatic duct. There were 3 branches extending to the right liver. The cholangiocatheter was then removed, two clips were placed on the cystic duct and it was divided. The gallbladder was then removed part way from its bed on the liver with electrocautery. After the gallbladder had been dissected about retirement up, bleeding was encountered from its bed on the liver. Tamponade was applied with the Raytec, followed by Surgicel, and ultimately a laparoscopic argon beam was used in combination with the Surgicel to control the bleeding. This process took approximately [address] Wahl scrubbed in for this portion of the procedure and an additional port in the right upper abdomen was placed. Once there was complete hemostasis, the gallbladder was dissected off of the liver. A small hole was made in it, and only bile spilled out, no stones. Prior to completely removing the gallbladder , a final look was taken at the stump of the cystic artery and cystic duct, and there was no bleeding or bile leak. The gallbladder was then fully removed from the liver and placed in an EndoCatch bag and removed. The Raytec was removed. A 19 Samoan SHASHANK drain was placed in the right upper quadrant of the abdomen and extracted through the most lateral of the port sites. The remaining three 5 mm ports were removed under direct vision, the 10 mm mid abdominal port was removed, and a [id number] 0 PDS was used to close the fascia. There was no fascial defect at the end of the case. 0.5% Marcaine with epinephrine was infused at all port sites for postoperative analgesia. The skin was closed with subcuticular 4-0 Monocryl. Sterile dressings were placed. The patient was awakened from general anesthesia and taken to the postoperative care unit in good condition. A modifier 22 is requested given the severe inflammatory adhesions due to chronic cholecystitis, which caused this case to take three times longer than usual. Complications There were no periprocedural complications identified. Surgical Specimen Removed: Yes Specimen sent to Pathology: Yes Surgical Specimen description: Gallbladder Anesthetic Plan: GA Grafts, Implants: Implants-See Implant Record (19 [place] islander SHASHANK drain) Output, Estimated Blood Loss: 100 (ml) Blood Administration during dennis: No Drains: SHASHANK Drain #1 (right abdomen) Nia Hays MD Oct 18, 2016 19:00
[2016-10-18 19:37] LABS: Mean Corpuscular Hemoglobin 29.5 pg (27.0-35.0); Mean Corpuscular Volume 85.7 fL (81-100)
[2016-10-18] MEDS: Dextrose 5% Lactated Ringer's 1,000 ML IV SCH (20:43)
[2016-10-18] MEDS ORDERED: ALPRAZolam 0.25 mg Tablet PO PRN (21:45)
[2016-10-18] MEDS: Acetaminophen IV 1,000 MG in IV Premix 1 EACH IV SCH (21:51)
[2016-10-19 00:10] VITALS: BP 124/70; PULSE 74; RESP 16; O2SAT 93
[2016-10-19] MEDS: Acetaminophen IV 1,000 MG in IV Premix 1 EACH IV SCH ×3 (02:48→14:30)
[2016-10-19] MEDS ORDERED: Lactated Ringer's 1,000 ML IV SCH (05:00)
[2016-10-19 05:04] VITALS: BP 113/65; PULSE 73; RESP 18; O2SAT 94
[2016-10-19] MEDS: Dextrose 5% Lactated Ringer's 1,000 ML IV SCH ×2 (05:12→14:53)
[2016-10-19] MEDS ORDERED: Pantoprazole 40 mg ER24 Tablet PO SCH (06:30)
[2016-10-19 06:41] LABS: APPEARANCE,URINE CLEAR (CLEAR,HAZY); COLOR,URINE YELLOW (YELLOW); OCCULT BLOOD,URINE NEGATIVE (NEGATIVE); PH,URINE 6.5 (5.0-8.0); UROBILINOGEN,URINE NORMAL (NORMAL)
[2016-10-19 07:20] LABS: BASOPHILS % (AUTO) 0.1 % (0-3); EOSINOPHILS % (AUTO) 0.6 % (0-5); MONOCYTES % (AUTO) 8.6 % (4-12); Mean Corpuscular Hemoglobin 29.9 pg (27.0-35.0); NEUTROPHILS % (AUTO) 79.6 % (40-74); Platelet Count 217 bil/L (150-400)
--- NOTE | 2016-10-19 07:30 | PCM.PNSURG ---
Subjective Visit Information: Reason for Visit Biliary Acute Pancreatitis Surgery/Surgery Date LAP MAKENZIE Post-Op Day # Date of Admission: Hospital Day # Subjective: Stable overnight. SHASHANK drain 25mL serosanguinous fluid. Normal vitals. No complaints. Labs pending. Objective Vital Sign- Last 8 Hours Date Time Temp Pulse Resp B/P Pulse Ox O2 Delivery O2 Flow Rate FiO2 10/19/16 05:04 36.9 73 18 113/65 94 CPAP 10/19/16 00:58 Supplement Oxygen CPAP/BIPAP 10/19/16 00:10 36.5 74 16 124/70 93 CPAP Intake and Output- Last 8 Hour 10/19/16 Cumulative From/Thru 07:00 10/16/16 15:47 - 10/19/16 06:06 Intake Total 1546 ml 2946 ml Output Total 355 ml 455 ml Balance 1191 ml 2491 ml Intake Oral 460 ml 460 ml IV Total 1086 ml 2486 ml Output Urine Total 330 ml 330 ml Drainage Total 25 ml 25 ml Estimated Blood Loss 100 ml General: Alert, Oriented X3, Cooperative, No Acute Distress Abdomen: Soft, Appropriately tender, Distended, Tympanic Result Diagram: 10/18/16 1900 10/18/161999 Assessment & Plan Impression POD1 laparoscopic cholecystectomy. Mild intraoperative bleeding, controlled, kept in hospital overnight for observation with drain. Problems: Plan Clear liquid diet Ambulate F/u morning labs Possible d/c of drain and d/c from hospital by early afternoon if stable Nia Hays MD Oct 19, 2016 07:30
--- NOTE | 2016-10-19 13:19 | PCM.DISURG ---
Surgical Discharge Instruction Date of Service Oct 19, 2016 Dates of Hospitalization Date of Hospital Admission Providers Admitting Physician: Primary Care Physician: Virginie Buchanan MD Attending Physician: Nia Hays MD Discharge Diagnosis Discharge Diagnosis Gallstone pancreatitis, cholecystitis Post Operative diagnosis 1. Gallstone pancreatitis 2. Chronic cholecystitis Diet Discharge Diet: No restrictions Activity Discharge Activity-General: No lifting >15 pounds for 2 weeks, No driving while taking narcotic Dressing and Incisional Care Dressing Care: Allow Steri Stripes to fall off, Remove outer dressing after 24 hrs Hygiene: May shower Follow Up Plan Follow Up Plan F/U with Dr. Hays in 2 weeks. OK to call clinic and cancel if everything is going well given the long distance you have to travel. Call your provider for: Fever, Chills, Shortness of breath, Increasing abdominal pain, Nausea, Vomiting, Wound redness, Increasing wound pain, Discharge @ incision, pus discharge Nia Hays MD Oct 19, 2016 13:19
[2016-10-19] MEDS ORDERED: OXYC5TAB72 PO (13:20)
[2016-10-19 13:55] VITALS: BP 102/58; PULSE 61; RESP 18; O2SAT 95
--- NOTE | 2016-10-20 10:51 | PCM.DC.SUR ---
Discharge Summary Date of Service: Date of Hospital Admission: 10/12/2016 Date of Operation(s): 10/18/2016 Date of Discharge: Oct 19, 2016 at 16:09 Diagnosis at Time of Discharge Primary diagnosis: 1. Gallstone pancreatitis 2. Chronic cholecystitis Secondary diagnoses: 1. Chronic GERD 2. Chronic obstructive sleep apnea on CPAP Problems: Operation Laparoscopic cholecystectomy with intraoperative cholangiogram with interpretation Brief History and Physical: This is a 76yo male who was admitted to the hospital 5 days ago for gallstone pancreatitis. He underwent ERCP with sphincterotomy and stone extraction. His amylase and lipase levels normalized and he was discharged. He also has a several year history of chronic right upper quadrant abdominal pain. He had seen his primary care provider for this, and was treating his pain with aspirin. Abdominal ultrasound showed a distended gallbladder with a thickened wall, gallstones, and a probable gallbladder polyp. Consultants: Hospitalist: 10/13/16 Javy Mitchell Sankar S MD General Surgery: 10/13/16 Dr. Nia Hays [facility] Course: Gallstone pancreatitis -S/P ERCP with sphincterotomy and stone extraction -LFT's followed until normal -pancreatitis improved -consider advancing diet Acute Cholecystitis -improved - on IV antibiotics -cholecystectomy as per surgery Chronic GERD -cont PPI daily -out patient EGD to rule out Bowser's Chronic NATI on CPAP, POA - Patient reports that his will bring in their CPAP machine. Pathology: Pending Disposition: Discharge to home Follow-up Plan: F/U with Dr. Hays in 2 weeks. OK to call clinic and cancel if everything is going well given the long distance you have to travel. ([Izabela]) 1 TAB PO DAILY (Reported) Alprazolam (Xanax) 0.25 Mg Tablet 0 PO PRN PRN PRN For Anxiety (Reported) Famotidine (Pepcid) 20 Mg Tablet 20 MG PO PRN (Reported) oxyCODONE (oxyCODONE) 5 Mg Tablet 5-10 MG PO Q4H PRN PRN For Moderate Pain copies to: Virginie Buchanan MD, Sherri L PA-C Oct 20, 2016 10:51
--- NOTE | 2016-10-20 11:36 | PATH ---
SURGICAL PATHOLOGY Attending Physician:Nia Hays MD CASE STATUS: Signed Out PATIENT NAME: KELLEY ACEVEDO PID: [id number] : 1940 DATE COLLECTED:10/18/2016 00:00 SPECIMEN: Gallbladder CLINICAL HISTORY: ACUTE BILIARY PANCREATITIS 1). GALLBLADDER FINAL DIAGNOSIS: 1.GALLBLADDER: CHOLELITHIASIS WITH ASSOCIATED CHRONIC CHOLECYSTITIS. ICD10 CODE K80.66 GROSS DESCRIPTION: The specimen is received in formalin, labeled with the patient's name, sublabeled as gallbladder and consists of an intact gallbladder (length-8.5 cm, diameter-3.2 cm) with a patent cystic duct. No lymph nodes are identified. The serosa is green smooth and shiny. The lumen contains dark brown viscous bile and black friable gritty multifaceted smooth calculi (3.2 x 2.8 x 1.1 cm in aggregate, ranging <0.1 cm-1.1 x 0.8 x 0.5 cm). The mucosa is dark brown and semi-velvety. The wall is up to 0.3 cm thick. No nodules, masses or lesions are identified. Section code: (A) gallbladder, help desk representative. 10/19/16 MICRO DESCRIPTION: See diagnosis. ICD-9 CODES: CPT CODES: 1: 73655 Electronically Signed Out José Luis Ybarra MD [facility] Pathology [facility] [address], [place] [address] Technical component performed at [facility], [facility] [address], [place], [address]
--- NOTE | 2016-10-31 13:56 | PCM.HPSURG ---
Subjective Date of Service: Oct 18, 2016 Referring Provider: Admitting Physician: Primary Care Physician: Virginie Buchanan MD Attending Physician: Nia Hays MD History of Present Illness This is a 76yo male who was admitted to the hospital 5 days ago for gallstone pancreatitis. He underwent ERCP with sphincterotomy and stone extraction. His amylase and lipase levels normalized and he was discharged. He also has a several year history of chronic right upper quadrant abdominal pain. He had seen his primary care provider for this, and was treating his pain with aspirin. Abdominal ultrasound showed a distended gallbladder with a thickened wall, gallstones, and a probable gallbladder polyp. He underwent laparoscopic cholecystectomy 10/18/16, today. Because of bleeding from the bed of the gallbladder which was controlled intraoperatively, he is admitted overnight for observation. PMH, PSH, Meds, Allergies, F/SHx unchanged since my consultation from 5 days ago. Allergy Allergies: Coded Allergies: Qqzesjx-Dzg-Plh Reductase Inhibitor (Verified Allergy, Intermediate, Extrapyramidal Symptoms, 10/12/16) weakness Sulfa (Sulfonamide Antibiotics) (Verified Allergy, Intermediate, Hives, 09/16) niacin (Verified Allergy, Intermediate, Hives, 10/12/16) Uncoded Allergies: bee stings (Allergy, Intermediate, Rash, 10/12/16) Social History Hx Alcohol Use: Yes (2 glasses of wine with dinner) Hx Substance Use: Yes (remote past) Hx Tobacco Use: Yes PMH HEENT History History of ENT Problems?: Yes HEENT History: Denies:: Abnormal Airway Cataracts Difficult Intubation Dysphagia Hearing Problem Sinus Problem Cardiovascular History History of Heart Problems?: No Respiratory History of Respiratory Problem: Yes Respiratory History: Positive for:: Use of C-PAP Machine Denies:: Asthma COPD Chest Surgery Dyspnea Emphysema Hemoptysis Pneumonia Tuberculosis Neurological History Hx Neurologic Problems?: Yes Neurological History: Positive for:: Dizziness (labrynthitis) Denies:: Alzheimer's Disease CVA Dementia Headaches Parkinson's Disease Seizures Gastrointestinal History HX of GI Problems?: Yes Gastrointestinal History: Positive for:: Gall Bladder Disease Gastroesphageal Reflux (LAP MAKENZIE SCHEDULED FOR 10/17/16) Heartburn Rectal Bleeding (with hemorrhoid) Denies:: Cirrhosis Diverticulitis Gastrointestinal Bleeding Hepatitis Hiatal Hernia Genitourinary History Hx of Gu Problems?: Yes Genitourinary History: Denies: HX of Hemodialysis Kidney Stones Urinary Tract Infection Female/Male History Reproductive History Male: Positive for: Prostate Problems Skin History Skin History: Denies:: History Skin Disorders? Pressure Ulcers Musculoskeletal History Hx Musculoskeletal Problems?: Yes Musculoskeletal History: Positive for:: Back Injury (back pain) Denies:: Joint Replacement Musculoskeletal Trauma Psycho Social History Hx of Psycho/Social Problems?: No Psycho Social History: Denies:: Anxiety Hx Depression Other History Hx Any Other Health Problems?: Yes Other History: Positive for:: Hospitalization (remote) Denies:: Cancer Thyroid Disease Diabetes: No (kidney spills sugar)Bedside Blood Glucose: 94 Social History Hx Alcohol Use: Yes (2 glasses of wine with dinner)Hx Substance Use: Yes ( remote past)Hx Tobacco Use: Yes Smoking Status: Former Smoker H&P Surgical Exam Exam General: Alert, Oriented X3, Cooperative, No Acute Distress Lungs: Clear to Auscultation Heart: Exam Unremarkable Abdomen: Soft, Appropriately tender, Distended, Tympanic, Other (drain in place ) Assessment & Plan Assessment POD0 laparoscopic cholecystectomy VTE Mechanical Devices: Intermittant Pneumatic CD Plan: Admit for observation Clear liquids Drain Recheck labs in the am. Nia Hays MD Oct 31, 2016 13:56
== END 2016-10-19 16:09 | disposition home or self-care (01) ==
LOC: SAS 11:06 → OSC 20:39 → SAS 10-19 16:09
PROVIDERS: ATTEND Surgery
DX: K80.10 Calculus of gallbladder with chronic cholecystitis without obstruction (principal); K82.8 Other specified diseases of gallbladder; K91.62 Intraoperative hemorrhage and hematoma of a digestive system organ or structure complicating other procedure; G47.33 Obstructive sleep apnea (adult) (pediatric); K21.9 Gastro-esophageal reflux disease without esophagitis
CPT/HCPCS: 36415; 47399; 47563; 74300; 80053; 81000; 85025; 85027; 88304; J0131; J0360; J0690; J1100; J2370; J2405; J2710; J2765; J7120; Q9967